=== PATIENT | female | born 1955 | race Caucasian/White ===

== ENCOUNTER 2021-01-01 05:48 | Outpatient (CLI) | payer OTHER | END 2021-01-01 05:49 | disposition critical access hospital (66) | LOC: EMS 05:48 | DX: R07.9 Chest pain, unspecified (principal) | CPT/HCPCS: A0425; A0427 ==

== ENCOUNTER 2021-01-01 06:06 | Emergency (ER) | payer OTHER ==
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
[2021-01-01 06:33] LABS: BASOPHILS % (AUTO) 0.4 %; EOSINOPHILS # (AUTO) 0.1 10^3/uL (0.0-0.7); EOSINOPHILS % (AUTO) 0.9 %; HCT - HEMATOCRIT 42.6 % (37.0-47.0); HGB - HEMOGLOBIN 13.7 g/dL (12.0-16.0); LYMPHOCYTES # (AUTO) 0.7 10^3/uL (1.5-3.5); LYMPHOCYTES % (AUTO) 10.3 %; MEAN CORPUSCULAR HEMOGLOBIN 31.7 pg (27.0-31.0); MEAN CORPUSCULAR HGB CONC 32.2 g/dL (32.0-36.0); MEAN CORPUSCULAR VOLUME 98.6 fL (81.0-99.0); MEAN PLATELET VOLUME 10.3 fL (7.9-10.8); MONOCYTES # (AUTO) 0.3 10^3/uL (0.0-1.0); NEUTROPHILS # (AUTO) 5.8 10^3/uL (1.5-6.6); PLT - PLATELET COUNT 218 10^3/uL (130-450); RED BLOOD COUNT 4.32 10^6/uL (4.20-5.40); RED CELL DISTRIBUTION WIDTH 13.4 % (12.0-15.0)
[2021-01-01 06:46] LABS: ALBUMIN 3.8 g/dL (3.2-5.5); ALBUMIN/GLOBULIN RATIO 1.7 (1.0-2.2); BILIRUBIN,TOTAL 0.8 mg/dL (0.2-1.0); CALCIUM 8.6 mg/dL (8.5-10.3); CREATININE 0.7 mg/dL (0.4-1.0); POTASSIUM 3.6 mmol/L (3.5-5.0)
[2021-01-01 07:31] VITALS: BP 110/71
--- NOTE | 2021-01-01 08:04 | XRAY Report ---
PROCEDURE: Chest 1 View X-Ray INDICATIONS: Chest Pain TECHNIQUE: One view of the chest was acquired. COMPARISON: None FINDINGS: Surgical changes and devices: None. Lungs and pleura: No pleural effusions or pneumothorax. Lungs are clear. Mediastinum: Mediastinal contours appear normal. Heart size is normal. Bones and chest wall: No suspicious bony lesions. Overlying soft tissues appear unremarkable. IMPRESSION: No acute cardiopulmonary disease process. Reviewed by: Medina Haynes MD, PhD on 01/01/2021 8:02 AM PDT Approved by: Medina Haynes MD, PhD on 01/01/2021 8:02 AM PDT Station ID: [id number]
== END 2021-01-01 07:36 | disposition home or self-care (01) ==
LOC: EDUNIT# → ED 06:06
DX: R07.9 Chest pain, unspecified (principal)
CPT/HCPCS: 36415; 80053; 83690; 84484; 85025; 93005; 99284